=== PATIENT | male | born 1930 | race Caucasian/White ===

== ENCOUNTER 2018-03-03 09:24 | Inpatient (IN) | payer OTHER ==
[~2018-03-03] VITALS: Ht 177.8 cm; Wt 90.5 kg
[2018-03-03 10:14] LABS: HEMATOCRIT 36.8 % (38.0-50.0); HEMOGLOBIN 12.6 G/DL (12.5-16.6); MCH 30.2 PG (29.0-34.0); MCHC 34.2 G/DL (30.0-36.0); MCV 88.2 FL (86-99); PLATELET COUNT 309 K/uL (156-360); RBC DIS.WIDTH-CV 11.9 % (11.8-14.6); RBC DIS.WIDTH-SD 38.6 % (39-53); RED BLOOD COUNT 4.17 M/uL (4.00-5.50); WHITE BLOOD COUNT 13.4 K/uL (4.1-10.2)
[2018-03-03 10:22] LABS: CHLORIDE 102 mEq/L (99-109); POTASSIUM 3.9 mEq/L (3.7-5.4); SODIUM 136 mEq/L (136-147)
[2018-03-03 10:24] LABS: GLUCOSE 181 mg/dL (70-99)
[2018-03-03 10:28] LABS: CREATININE 0.9 mg/dL (0.6-1.3); GFR ESTIMATE (CALCULATED) > 59 mL/min/ (58.99-99999)
[2018-03-03 10:29] LABS: UREA NITROGEN (BUN) 30 mg/dL (9-23)
[2018-03-03] MEDS ORDERED: METFORMIN HCL1000 MG PO (12:15)
[2018-03-03] MEDS ORDERED: HYDROCHLOROTHIA50 MG PO (12:16)
[2018-03-03] MEDS ORDERED: KLOR-CON 1010 ME1 PO (12:17)
[2018-03-03] MEDS ORDERED: OMEGA-3 ACID ETH1 GM PO (12:17)
[2018-03-03] MEDS ORDERED: ALLOPURINOL300 MG PO (12:18)
[2018-03-03] MEDS ORDERED: VITAMIN E100 UNIT PO (12:19)
[2018-03-03] MEDS ORDERED: VITAMIN C500 M6 PO (12:20)
[2018-03-03] MEDS ORDERED: VITAMIN B12 100MCG PO (12:21)
[2018-03-03] MEDS ORDERED: VITAMIN B-6100 MG PO (12:21)
[2018-03-03 14:35] VITALS: BP 154/85
[2018-03-03 14:42] VITALS: BP 154/85
[2018-03-03 20:19] VITALS: BP 119/64
[2018-03-04] VITALS: BP 141/62
[2018-03-04 04:12] VITALS: BP 125/61
[2018-03-04 05:48] LABS: HEMATOCRIT 35.1 % (38.0-50.0); HEMOGLOBIN 11.7 G/DL (12.5-16.6); MCH 29.6 PG (29.0-34.0); MCHC 33.3 G/DL (30.0-36.0); MCV 88.9 FL (86-99); PLATELET COUNT 288 K/uL (156-360); RED BLOOD COUNT 3.95 M/uL (4.00-5.50); WHITE BLOOD COUNT 11.1 K/uL (4.1-10.2)
[2018-03-04 07:00] LABS: CHLORIDE 101 MEQ/L (99-109); CREATININE 0.9 MG/DL (0.6-1.3); GFR ESTIMATE (CALCULATED) > 59 mL/min/ (58.99-99999); GLUCOSE 133 mg/dL (70-99); POTASSIUM 3.5 MEQ/L (3.7-5.4); SODIUM 137 MEQ/L (136-147); UREA NITROGEN (BUN) 27 mg/dL (9-23)
[2018-03-04 08:30] VITALS: BP 120/68
[2018-03-04 16:30] VITALS: BP 128/72
[2018-03-04 19:56] VITALS: BP 128/61
[2018-03-04 23:33] VITALS: BP 129/60
[2018-03-05 05:46] LABS: HEMATOCRIT 32.9 % (38.0-50.0); MCH 30.1 PG (29.0-34.0); MCHC 33.4 G/DL (30.0-36.0); MCV 89.9 FL (86-99); PLATELET COUNT 286 K/uL (156-360); RBC DIS.WIDTH-SD 39.2 % (39-53); RED BLOOD COUNT 3.66 M/uL (4.00-5.50); WHITE BLOOD COUNT 10.9 K/uL (4.1-10.2)
[2018-03-05 06:22] LABS: CHLORIDE 103 MEQ/L (99-109); CREATININE 0.9 MG/DL (0.6-1.3); GFR ESTIMATE (CALCULATED) > 59 mL/min/ (58.99-99999); GLUCOSE 128 mg/dL (70-99); POTASSIUM 4.1 MEQ/L (3.7-5.4); SODIUM 137 MEQ/L (136-147); UREA NITROGEN (BUN) 28 mg/dL (9-23); VANCOMYCIN, TROUGH 11.4 MCG/ML (10-20)
[2018-03-05 08:19] LABS: HEMOGLOBIN A1c (GLYCOHEMOGLOB) 7.6 % (Below 5.7)
[2018-03-05 08:24] VITALS: BP 120/68
[2018-03-05 16:00] VITALS: BP 132/60
[2018-03-05 23:31] VITALS: BP 139/65
[2018-03-06 05:51] LABS: HEMATOCRIT 33.8 % (38.0-50.0); HEMOGLOBIN 11.4 G/DL (12.5-16.6); MCH 30.3 PG (29.0-34.0); MCHC 33.7 G/DL (30.0-36.0); MCV 89.9 FL (86-99); PLATELET COUNT 310 K/uL (156-360); RBC DIS.WIDTH-CV 11.9 % (11.8-14.6); RBC DIS.WIDTH-SD 38.9 % (39-53); RED BLOOD COUNT 3.76 M/uL (4.00-5.50); WHITE BLOOD COUNT 9.3 K/uL (4.1-10.2)
[2018-03-06 06:23] LABS: CHLORIDE 104 MEQ/L (99-109); CREATININE 0.8 MG/DL (0.6-1.3); GFR ESTIMATE (CALCULATED) > 59 mL/min/ (58.99-99999); GLUCOSE 121 mg/dL (70-99); POTASSIUM 3.7 MEQ/L (3.7-5.4); SODIUM 139 MEQ/L (136-147); UREA NITROGEN (BUN) 24 mg/dL (9-23)
[2018-03-06 08:00] VITALS: BP 154/73
[2018-03-06 16:30] VITALS: BP 140/72
[2018-03-06 23:53] VITALS: BP 160/72
[2018-03-07 08:43] VITALS: BP 158/72
[2018-03-07 12:07] VITALS: BP 168/81
[2018-03-07 16:53] VITALS: BP 120/59
[2018-03-07 23:25] VITALS: BP 162/78
[2018-03-08 07:52] VITALS: BP 148/72
[2018-03-08] MEDS ORDERED: DURICEF500 MG PO (13:16)
[2018-03-08] MEDS ORDERED: HYDROCODON-ACE1 EAC7 PO (13:16)
[2018-03-08 16:30] VITALS: BP 122/80
== END 2018-03-08 18:12 | disposition home health service (06) | DRG 580 ==
LOC: EME 09:24 → 3EAST 12:07 → EDOF 12:07 → ENRESERV 12:10 → 3EAST 14:12
PROVIDERS: Family Medicine; Hospitalist; Physician Assistant
PROC: 0X6N0Z2 Detachment at Right Index Finger, Mid, Open Approach (ICD-10-PCS; principal; 2018-03-04)
DX: L03.011 Cellulitis of right finger (principal); L03.113 Cellulitis of right upper limb; E11.52 Type 2 diabetes mellitus with diabetic peripheral angiopathy with gangrene; I96 Gangrene, not elsewhere classified; M86.9 Osteomyelitis, unspecified; L02.511 Cutaneous abscess of right hand; S62.630B Displaced fracture of distal phalanx of right index finger, initial encounter for open fracture; X50.0XXA Overexertion from strenuous movement or load, initial encounter; B95.61 Methicillin susceptible Staphylococcus aureus infection as the cause of diseases classified elsewhere; E11.65 Type 2 diabetes mellitus with hyperglycemia; E11.628 Type 2 diabetes mellitus with other skin complications; E11.69 Type 2 diabetes mellitus with other specified complication; M65.9 Synovitis and tenosynovitis, unspecified; E83.52 Hypercalcemia; I10 Essential (primary) hypertension; M19.041 Primary osteoarthritis, right hand; Z60.2 Problems related to living alone; G89.29 Other chronic pain; M10.9 Gout, unspecified; Z79.4 Long term (current) use of insulin; Y92.9 Unspecified place or not applicable
CPT/HCPCS: 73130; 80048; 80202; 82330; 82948; 83036; 83605; 85027; 87040; 87070; 87075; 87077; 87147; 87186; 87205; 87641; 87801; 88305; 99281; 99285; J0131; J0690; J1644; J1815; J1885; J2405; J2543; J3010; J3370; J7050; J7120; S0020

== ENCOUNTER 2018-05-27 10:05 | Inpatient (IN) | payer OTHER ==
[~2018-05-27] VITALS: Ht 177.8 cm; Wt 84.3 kg
[~2018-05-27 10:05] MED LIST: ALLOPURINOL300 MG PO; ASCORBIC ACID250 MG PO; CYANOCOBALAM1000 MCG PO; DURICEF500 MG PO; HYDROCHLOROTHIA50 MG PO; HYDROCODON-ACE1 EAC7 PO; KLOR-CON 1010 ME1 PO; METFORMIN HCL1000 MG PO; OMEGA-3 ACID ETH1 GM PO; VITAMIN B-6100 MG PO; VITAMIN E200 UNI2 PO
[2018-05-27 11:11] LABS: BASOPHIL (%) 0.2 % (0-1); EOSINOPHIL (%) 0.2 % (0-5); HEMATOCRIT 37.9 % (38.0-50.0); IMMATURE GRANULOCYTE (%) 0.7 % (0.0-0.7); LYMPHOCYTE (%) 11.7 % (15-42); LYMPHOCYTE COUNT 1.6 K/uL (1.0-2.8); MCH 29.7 PG (29.0-34.0); MCHC 34.3 G/DL (30.0-36.0); MCV 86.7 FL (86-99); MONOCYTE (%) 6.1 % (3-12); MONOCYTE COUNT 0.8 K/uL (0-0.8); NEUTROPHIL (%) 81.1 % (45-76); NEUTROPHIL COUNT 11.2 K/uL (1.8-6.4); PLATELET COUNT 308 K/uL (156-360); RBC DIS.WIDTH-CV 12.4 % (11.8-14.6); RBC DIS.WIDTH-SD 39.6 % (39-53); RED BLOOD COUNT 4.37 M/uL (4.00-5.50); WHITE BLOOD COUNT 13.8 K/uL (4.1-10.2)
[2018-05-27 11:31] LABS: ALBUMIN 4.1 G/DL (3.2-4.8); CHLORIDE 98 MEQ/L (99-109); POTASSIUM 4.4 MEQ/L (3.7-5.4); SODIUM 137 MEQ/L (136-147); TOTAL BILIRUBIN 0.5 MG/DL (0.0-1.0)
[2018-05-27 11:37] LABS: ALKALINE PHOSPHATASE 85 IU/L (3-129); ALT (GPT) 15 IU/L (3-49); AST (GOT) 20 IU/L (2-34); CREATININE 0.9 MG/DL (0.6-1.3); GFR ESTIMATE (CALCULATED) > 59 mL/min/ (58.99-99999); GLUCOSE 175 mg/dL (70-99); TOTAL PROTEIN 8.1 G/DL (6.4-8.3); UREA NITROGEN (BUN) 31 mg/dL (9-23)
[2018-05-27 11:47] LABS: APPEARANCE CLEAR ((CLEAR)); BILIRUBIN NEGATIVE; BLOOD NEGATIVE; COLOR YELLOW ((YELLOW)); GLUCOSE (STRIP) NEGATIVE; KETONES NEGATIVE; LEUKOCYTES SMALL; NITRITE NEGATIVE; PROTEIN (STRIP) 100
[2018-05-27 12:00] LABS: BACTERIA NONE SEEN /HPF; EPITHELIAL CELLS RARE /HPF; HYALINE CASTS 0-5 /LPF; MUCUS TRACE /LPF; UCUL ADDED? NO; WHITE BLOOD CELLS 0-5 /HPF (0-5)
[2018-05-27] MEDS ORDERED: AMOX TR-K CLV1 EAC4 PO (13:34)
[2018-05-27 14:46] VITALS: BP 166/78
[2018-05-27 16:27] LABS: INTER. NORMALIZED RATIO 1.4
[2018-05-27 20:02] VITALS: BP 122/68
[2018-05-27 23:43] VITALS: BP 149/70
[2018-05-28 05:18] VITALS: BP 141/66
[2018-05-28 07:56] LABS: CHLORIDE 102 MEQ/L (99-109); CREATININE 0.9 MG/DL (0.6-1.3); GFR ESTIMATE (CALCULATED) > 59 mL/min/ (58.99-99999); GLUCOSE 152 mg/dL (70-99); SODIUM 137 MEQ/L (136-147); UREA NITROGEN (BUN) 22 mg/dL (9-23)
[2018-05-28 11:49] VITALS: BP 153/72
[2018-05-28 16:33] VITALS: BP 136/67
[2018-05-28 23:17] VITALS: BP 123/66
[2018-05-29 08:47] VITALS: BP 113/70
[2018-05-29 13:14] LABS: HEMOGLOBIN A1c (GLYCOHEMOGLOB) 7.2 % (Below 5.7)
[2018-05-29 16:01] VITALS: BP 148/73
[2018-05-29 23:53] VITALS: BP 129/63
[2018-05-30 07:20] LABS: ALBUMIN 3.5 G/DL (3.2-4.8); CHLORIDE 103 MEQ/L (99-109); CREATININE 0.9 MG/DL (0.6-1.3); GFR ESTIMATE (CALCULATED) > 59 mL/min/ (58.99-99999); GLUCOSE 162 mg/dL (70-99); PHOSPHORUS 3.3 mg/dL (2.5-4.9); POTASSIUM 3.8 MEQ/L (3.7-5.4); SODIUM 138 MEQ/L (136-147); UREA NITROGEN (BUN) 20 mg/dL (9-23)
[2018-05-30 08:34] VITALS: BP 122/78
[2018-05-30 16:36] VITALS: BP 122/62
[2018-05-30 23:57] VITALS: BP 117/60
[2018-05-31 08:16] VITALS: BP 118/76
[2018-05-31 16:21] VITALS: BP 120/68
[2018-05-31 23:23] VITALS: BP 124/73
[2018-05-31 23:27] VITALS: BP 133/70
[2018-06-01 08:00] VITALS: BP 132/66
[2018-06-01] MEDS ORDERED: BACTRIM,SEPT1 TABLET PO (12:47)
== END 2018-06-01 14:52 | disposition home health service (06) | DRG 256 ==
LOC: EME 10:05 → 3EAST 11:58 → EDOF 11:58 → ENRESERV 12:14 → 3EAST 14:20
PROVIDERS: Emergency Medicine; Internal Medicine; Surgery
PROC: 0Y6P0Z1 Detachment at Right 1st Toe, High, Open Approach (ICD-10-PCS; principal; 2018-05-27)
DX: E11.52 Type 2 diabetes mellitus with diabetic peripheral angiopathy with gangrene (principal); L03.115 Cellulitis of right lower limb; I96 Gangrene, not elsewhere classified; I10 Essential (primary) hypertension; M10.9 Gout, unspecified; Z60.2 Problems related to living alone; Z89.411 Acquired absence of right great toe; Z85.828 Personal history of other malignant neoplasm of skin; Z89.021 Acquired absence of right finger(s); Z79.84 Long term (current) use of oral hypoglycemic drugs
CPT/HCPCS: 73630; 80048; 80053; 80069; 80202; 81003; 82948; 83036; 83605; 85025; 85610; 87040; 87070; 87075; 87077; 87147; 87186; 87205; 88305; 88311; 93005; 93925; 99281; 99285; J0690; J1335; J1815; J2543; J3370; J7040; J7050